=== PATIENT | male | born 1955 | race Caucasian/White ===

== ENCOUNTER 2022-03-01 09:33 | Inpatient (IN) | payer OTHER ==
[2022-02-22 14:52] LABS: BASOPHILS # (AUTO) 0.1 X10'3 (0-0.2); EOSINOPHILS # (AUTO) 0.2 X10'3 (0-0.9); EOSINOPHILS % (AUTO) 2.6 % (0-6); MEAN CORPUSCULAR HEMOGLOBIN 29.4 PG (27.0-31.0); NEUTROPHILS # (AUTO) 4.3 X10'3 (1.8-7.7); PRE OP HEMOGLOBIN 15.7 g/dL (14.0-17.9)
[2022-02-22 14:53] LABS: BASOPHILS % (AUTO) 1.4 % (0-1); MEAN CORPUSCULAR HGB CONC 33.2 g/dL (33.0-36.5); MEAN CORPUSCULAR VOLUME 88.3 FL (78-98); MEAN PLATELET VOLUME 7.2 FL (7.4-10.4); MONOCYTES # (AUTO) 0.9 X10'3 (0-0.9); MONOCYTES % (AUTO) 11.7 % (2-12); NEUTROPHILS % (AUTO) 57.3 % (42-75); PRE OP HEMATOCRIT 47.3 % (42.0-52.0); PRE OP PLATELET COUNT 297 X10'3 (140-440); RED BLOOD COUNT 5.36 X10'6 (4.70-6.10); RED CELL DISTRIBUTION WIDTH 14.2 % (11.5-14.5)
[2022-02-22 15:03] LABS: ALBUMIN/GLOBULIN RATIO 1.1 (1.1-1.5); ALKALINE PHOSPHATASE 76 IU/L (46-116); BLOOD UREA NITROGEN 17 MG/DL (7-18); BUN/CREATININE RATIO 14.8 (5.4-32.0); CALCIUM 9.8 MG/DL (8.5-10.1); CHLORIDE 103 MMOL/L (99-107); CREATININE 1.15 MG/DL (0.60-1.10); PRE OP ALT 40 U/L (30-65); PRE OP ANION GAP 8 (8-16); PRE OP AST 17 U/L (10-37); PRE OP BILIRUB, TOTAL 0.4 MG/DL (0.0-1.0); PRE OP GLUCOSE 179 MG/DL (70-104); PRE OP POTASSIUM 4.1 MMOL/L (3.4-5.1); PRE OP SODIUM 141 MMOL/L (135-145); TOTAL CARBON DIOXIDE 30.3 MMOL/L (24-32); TOTAL PROTEIN 7.6 G/DL (6.4-8.2); eGFR 63 ML/MIN
[2022-03-01] VITALS (20 sets, daily range): BP systolic 109–142; BP diastolic 66–88
[~2022-03-01] VITALS: Ht 179.1 cm; Wt 97.5 kg
[~2022-03-01 09:33] MED LIST: AMLO2.5T2 PO; ASPI81TA52 PO; ATOR-2 PO; CELE-193 PO; DOCUMENT DATE & TIME OF BETA-BLOCKER PO ONE; METF-516 PO; METO-539 PO; ceFAZolin inj. 2,000 MG in dextrose 5%-water 100 ML IV ONE; famotidine 20mg tablet PO ONE; tranexamic acid 650mg tablet PO ONE; vancomycin 1,500 MG in NS 300ml IV soln IV ONE
--- NOTE | 2022-03-01 09:40 | NUR ---
PT COMPLETED 5 DAYS OF HIBICLENS SHOWERS AND NASAL OINTMENT. HE DID NOT WATCH THE EDUCATIONAL VIDEO RECOMMENDED OR READ THE BOOKLET. HE STATED HE HAD HIS SHOULDER DONE BEFORE AND WAS ALREADY INFORMED. RADIAL PULSE STRONG AND MARKED. CSM WITHIN NORMAL LIMITS. Addendum: 03/01/22 at 1254 by Jenni Josue RN Amended: Links added.
[2022-03-01] MEDS: ringers solution, lacted 1,000 ML IV SCH ×2 (10:22→21:01)
--- NOTE | 2022-03-01 10:27 | NUR ---
pt took metoprolol 02/28 at 1900
[2022-03-01] MEDS ORDERED: ringers solution, lacted 1,000 ML IV SCH (11:35)
[2022-03-01] MEDS ORDERED: ondansetron/PF 4mg/2ml inj IV PRN ×2 (11:35→15:30)
[2022-03-01] MEDS ORDERED: morphine 4 MG/ML inj SYRINge IV PRN (11:35)
[2022-03-01] MEDS ORDERED: proCHLORperazine 10 MG/2 ml inj IV PRN (11:35)
[2022-03-01] MEDS ORDERED: morphine 2 MG/ML inj. syringe IV PRN (11:35)
[2022-03-01] MEDS ORDERED: meperidine/PF 25mg/ml syringe IV PRN ×3 (11:35)
[2022-03-01] MEDS ORDERED: ROPIVAcaine 0.5% (5mg/ml) 30ml vial ONE ×2 (12:02→12:51)
[2022-03-01] MEDS ORDERED: ketorolac trometh. 30mg/ml inj. ONE (12:02)
[2022-03-01] MEDS ORDERED: fentaNYL/PF 50MCG/1 ML 2ML syringe ONE (13:07)
[2022-03-01] MEDS ORDERED: MIDAZolam 1 MG/ML 5ML VIAL ONE (13:07)
[2022-03-01] MEDS ORDERED: propofol inj 20 ML IV ONE (13:07)
[2022-03-01] MEDS ORDERED: LIDOcaine 1%/PF 5ML 10 MG/ML VIAL ONE (13:38)
[2022-03-01] MEDS ORDERED: ROPIVAcaine 0.2%/PF PUMP/bolus 545 ML INTERSCALE SCH (14:25)
[2022-03-01] MEDS ORDERED: ROPIVAcaine 0.2% (10 MG/5 ML) BOLUS INJECTION INTERSCALE PRN (14:25)
[2022-03-01] MEDS ORDERED: ondansetron/PF 4mg/2ml inj ONE (15:20)
[2022-03-01] MEDS ORDERED: magnesium hydroxide 30ml (MOM) UD suspension PO PRN (15:30)
[2022-03-01] MEDS ORDERED: bisacodyl 10mg suppository rectal RC PRN (15:30)
[2022-03-01] MEDS ORDERED: oxyCODONE IR 5mg (immed. release) tablet PO PRN ×2 (15:30)
[2022-03-01] MEDS ORDERED: diphenhydrAMINE 25mg capsule PO PRN ×2 (15:30)
[2022-03-01] MEDS ORDERED: HYDROmorphone inj. 0.5 MG/0.5 ML DISP.SYRIN IV PRN (15:30)
[2022-03-01] MEDS ORDERED: HYDROcodone/acetaminophen 10/325mg tab PO PRN ×2 (15:30)
[2022-03-01] MEDS ORDERED: naloxone 0.4 mg/ml inj IV PRN (15:30)
[2022-03-01] MEDS ORDERED: HYDROmorphone 1 mg/ml syringe IV PRN (15:30)
[2022-03-01] MEDS ORDERED: acetaminophen 325mg tablet PO PRN (15:30)
--- NOTE | 2022-03-01 15:40 | NUR ---
Received from OR via HOSPITAL BED, accompanied by Anesthesiologist DR CRAFT and report given by Anesthesiolgist. PT IS GROGGY, NOT RESPONDING TO VERBAL STIMULI. PT PLACED ON BEDSIDE MONITOR, VSS. RECEIVING 8L O2 TO MASK, PT DID START TO DE-SAT DOWN TO 70'S. ORAL AIRWAY PLACED, PT TOLERATED WELL AND IS NOW MAINTAINING O2 SAT IN MID 90'S. PUPILS ARE EQUAL AND REACTIVE. PT IS IN SR WITH RATE IN 70'S. PT HAS 18G PIV TO LEFT FA WITH LR INFUSING ORDERED. PT HAS DRSG TO RIGHT SHOULDER THAT IS CDI, SHOULDER WRAP IS IN PLACE WELL ICE PACK. RT ARM IS IN SLING. PT IS RESTING COMFORTABLY AND WILL CONTINUE TO ASSESS FOR PAIN PT BEGINGS TO WAKE UP MORE FROM ANESTHESIA.
--- NOTE | 2022-03-01 17:21 | NUR ---
REPORT GIVEN TO KIMI BARRIENTOS AND ALL QUESTIONS ANSWERED. PATIENT TRANSFERRED TO ORTHO. LABELED BELONGINGS PRESENT AND DELIVERED TO ROOM. RN PRESENT ALL CRITERIA FOR TRANSFER BACK TO THE FLOOR HAS BEEN ACHIEVED. VSS. PAIN AT A TOLERABLE LEVEL. BED LOW, CALL LIGHT PRESENT AND 2 RAILS DOWN. RN AWARE THAT PATIENT HAS ARRIVED TO ACCEPT CARE OF PATIENT.
--- NOTE | 2022-03-01 17:50 | NUR ---
received patient @ 1745. IV fluids running, Post-op vitals started VS stable. Alert and Oriented x4 at bedside. Will report to NOC shift the need to review orders and initiate floor orders
[2022-03-01] MEDS: ceFAZolin/D5W- 1GM premix 50 ML IV SCH (19:43)
[2022-03-01] MEDS ORDERED: vancomycin/NS 1 GM ADD-VANTAGE 250 ML IV SCH (20:00)
[2022-03-01] MEDS: potassium cl 20mEq in 1/2 NS 1,000 ML IV SCH ×2 (20:56→23:30)
[2022-03-01] MEDS: metFORMIN 500mg tablet PO SCH (20:56)
[2022-03-01] MEDS: acetaminophen 325mg tablet PO SCH (20:57)
[2022-03-01] MEDS ORDERED: metoprolol succinate 25mg (24-HOUR) SR. Tablet PO SCH (21:00)
[2022-03-01] MEDS ORDERED: amLODIPine 2.5mg tablet PO SCH (21:00)
[2022-03-01] MEDS ORDERED: celeCOXIB 100mg capsule PO SCH (21:00)
[2022-03-01] MEDS ORDERED: sennosides 8.6mg tablet PO SCH (21:00)
[2022-03-01] MEDS ORDERED: atorvastatin 20mg tablet PO SCH (21:00)
[2022-03-02] MEDS: ceFAZolin/D5W- 1GM premix 50 ML IV SCH (00:52)
[2022-03-02 02:00] VITALS: BP 120/61
[2022-03-02] MEDS: acetaminophen 325mg tablet PO SCH ×2 (02:00→07:23)
[2022-03-02 06:00] VITALS: BP 104/57
[2022-03-02 06:14] LABS: BASOPHILS # (AUTO) 0.1 X10'3 (0-0.2); BASOPHILS % (AUTO) 0.6 % (0-1); EOSINOPHILS % (AUTO) 0.1 % (0-6); HEMATOCRIT 40.7 % (42.0-52.0); HEMOGLOBIN 13.7 g/dl (14.0-17.9); LYMPHOCYTES % (AUTO) 6.7 % (21-51); MEAN CORPUSCULAR HEMOGLOBIN 29.6 PG (27.0-31.0); MEAN CORPUSCULAR HGB CONC 33.6 g/dL (33.0-36.5); MEAN PLATELET VOLUME 7.3 FL (7.4-10.4); MONOCYTES # (AUTO) 1.4 X10'3 (0-0.9); MONOCYTES % (AUTO) 9.5 % (2-12); NEUTROPHILS # (AUTO) 12.2 X10'3 (1.8-7.7); NEUTROPHILS % (AUTO) 83.1 % (42-75); PLATELET COUNT 269 X10'3 (140-440); RED BLOOD COUNT 4.63 X10'6 (4.70-6.10); RED CELL DISTRIBUTION WIDTH 14.2 % (11.5-14.5); WHITE BLOOD COUNT 14.7 X10'3 (4.5-11.0)
[2022-03-02 06:16] LABS: ANION GAP 7 (8-16); CHLORIDE 105 MMOL/L (99-107); POTASSIUM 4.5 MMOL/L (3.5-5.1); SODIUM 138 MMOL/L (135-145); TOTAL CARBON DIOXIDE 25.7 MMOL/L (24-32)
--- NOTE | 2022-03-02 06:20 | NUR ---
received report from corrine guthrie
--- NOTE | 2022-03-02 06:32 | NUR ---
Patient in room ORTHO 4023. I have received report from Ivy BARRIENTOS and had the opportunity to ask questions and assume patient care.
[2022-03-02] MEDS: metFORMIN 500mg tablet PO SCH (07:24)
[2022-03-02] MEDS ORDERED: aspirin 325mg tablet PO SCH (08:30)
[2022-03-02] MEDS: potassium cl 20mEq in 1/2 NS 1,000 ML IV SCH (08:31)
--- NOTE | 2022-03-02 09:42 | NUR ---
pt d/c with instructions, understanding of instructions and w/all belongings accompanied by walking down to private vehicle to go home and f/u w/pcp
--- NOTE | 2022-03-02 11:22 | NUR ---
Joint Surgery Consult: Pt s/p R shoulder surgery this admit per EMR. Pt discharged prior to RD visit; written high protein diet ed w/ RD contact information mailed to pt home address provided in EMR. Addendum: 03/02/22 at [address] Amended: Links added.
[2022-03-02] MEDS ORDERED: celeCOXIB 100mg capsule PO SCH (20:00)
[2022-03-03] MEDS ORDERED: acetaminophen 325mg tablet PO PRN (15:30)
== END 2022-03-02 09:40 | disposition home or self-care (01) | DRG 483 ==
LOC: PAS 09:33 → EDSTATUS 11:00 → PAS IN 15:32 → ORTHO 4S 17:25
PROVIDERS: ADMIT Orthopaedic Surgery; ATTEND Orthopaedic Surgery
PROC: 0RPJ0J6 Removal of Synthetic Substitute from Right Shoulder Joint, Humeral Surface, Open Approach (ICD-10-PCS; 2022-03-01)
PROC: 0LS30ZZ Reposition Right Upper Arm Tendon, Open Approach (ICD-10-PCS; 2022-03-01)
PROC: 3E0T3BZ Introduction of Anesthetic Agent into Peripheral Nerves and Plexi, Percutaneous Approach (ICD-10-PCS; 2022-03-01)
PROC: 3E0T33Z Introduction of Anti-inflammatory into Peripheral Nerves and Plexi, Percutaneous Approach (ICD-10-PCS; 2022-03-01)
PROC: 0RRJ0JZ Replacement of Right Shoulder Joint with Synthetic Substitute, Open Approach (ICD-10-PCS; principal; 2022-03-01 13:02)
DX: M19.011 Primary osteoarthritis, right shoulder (principal); G89.29 Other chronic pain
CPT/HCPCS: 36415; 80051; 80053; 82948; 85025; 87081; 87811; 97110; 97116; 97161; A4215; A4565; A4615; A4618; A7000; C1713; C1776; G0378; J0690; J1885; J2250; J2405; J2704; J2795; J3010; J3370; J3480; J3490; J7040; J7060; J7120

== ENCOUNTER → 2022-08-15 | Day surgery (SDC) | payer OTHER ==
[2022-08-10 10:47] LABS: BASOPHILS # (AUTO) 0.1 X10'3 (0-0.2); BASOPHILS % (AUTO) 1.3 % (0-1); EOSINOPHILS # (AUTO) 0.1 X10'3 (0-0.9); EOSINOPHILS % (AUTO) 1.3 % (0-6); LYMPHOCYTES # (AUTO) 1.7 X10'3 (1.1-4.8); LYMPHOCYTES % (AUTO) 20.6 % (21-51); MEAN CORPUSCULAR HEMOGLOBIN 29.4 PG (27.0-31.0); MEAN PLATELET VOLUME 7.6 FL (7.4-10.4); MONOCYTES # (AUTO) 0.7 X10'3 (0-0.9); MONOCYTES % (AUTO) 8.6 % (2-12); NEUTROPHILS # (AUTO) 5.6 X10'3 (1.8-7.7); NEUTROPHILS % (AUTO) 68.2 % (42-75); PRE OP HEMATOCRIT 47.8 % (42.0-52.0); PRE OP HEMOGLOBIN 15.8 g/dL (14.0-17.9); PRE OP PLATELET COUNT 306 X10'3 (140-440); RED BLOOD COUNT 5.37 X10'6 (4.70-6.10); RED CELL DISTRIBUTION WIDTH 14.1 % (11.5-14.5)
[2022-08-10 10:57] LABS: CHLORIDE 102 MMOL/L (99-107); PRE OP POTASSIUM 4.1 MMOL/L (3.4-5.1); PRE OP SODIUM 139 MMOL/L (135-145)
[2022-08-10 10:58] LABS: ALBUMIN 4.1 G/DL (3.4-5.0); ALBUMIN/GLOBULIN RATIO 1.1 (1.1-1.5); ALKALINE PHOSPHATASE 71 IU/L (46-116); BLOOD UREA NITROGEN 16 MG/DL (7-18); BUN/CREATININE RATIO 12.5 (5.4-32.0); CALCIUM 9.4 MG/DL (8.5-10.1); CREATININE 1.28 MG/DL (0.60-1.10); PRE OP ALT 34 U/L (30-65); PRE OP ANION GAP 10 (8-16); PRE OP AST 23 U/L (10-37); PRE OP BILIRUB, TOTAL 0.7 MG/DL (0.0-1.0); TOTAL PROTEIN 7.7 G/DL (6.4-8.2); eGFR 56 ML/MIN
[2022-08-10 10:59] LABS: PRE OP GLUCOSE 236 MG/DL (70-104)
[2022-08-15] VITALS (12 sets, daily range): BP systolic 126–161; BP diastolic 79–102
[~2022-08-15] VITALS: Ht 179.1 cm; Wt 98.9 kg
[~2022-08-15] MED LIST changes: +ASCO-157 PO; +BUPIVAcaine/PF 2.5 mg/ml (0.25%) 30ml vial ONE; +CHOL500049 PO; +HYDROcodone/acetaminophen 10/325mg tab PO PRN; +LIDOcaine 2% (20mg/ml) 5ml vial ONE; +MULT-1085 PO; +ROPIVAcaine 0.5% (5mg/ml) 30ml vial ONE; -ceFAZolin inj. 2,000 MG in dextrose 5%-water 100 ML IV ONE; +cefazolin 2gm/D5W 100mL 100 ML IV ONE; +dexamethasone sod phosphate 4mg/ml inj. ONE; +fentaNYL/PF 50MCG/1 ML 2ML syringe IV PRN; +fentaNYL/PF 50MCG/1 ML 2ML syringe ONE; +hydrALAZINE 20mg/ml inj. IV PRN; +labetalol 20mg/4ml (5mg/ml) syringe IV PRN; +midazolam 1 mg/ML 2ml injection ONE; +morphine 2 MG/ML inj. syringe IV PRN; +morphine 4 MG/ML inj SYRINge IV PRN; +ondansetron/PF 4mg/2ml inj IV PRN; +ondansetron/PF 4mg/2ml inj ONE; +propofol inj 20 ML IV ONE; +ringers solution, lacted 1,000 ML IV SCH; -tranexamic acid 650mg tablet PO ONE; -vancomycin 1,500 MG in NS 300ml IV soln IV ONE
--- NOTE | 2022-08-15 09:38 | NUR ---
Received from OR via , accompanied by Anesthesiologist ANTONIO AND OR NURSE and report given by Anesthesiolgist. PT IS DROWSY AND NEEDS AN ORAL AIRWAY A PRECAUTIONARY STEP UNTIL HE AWAKENS MORE. PT ABLE TO OPEN EYES MOMENTARILY. 20G TO RT HAND. LEFT ELBOW WRAPPED IN GAUZE, SPLINT AND ACEWRAP IN A SLING; CDI. DENIES PAIN OR DISCOMFORT. VSS Addendum: 08/15/22 at 1023 by Lucero Stock RN Amended: Links added.
--- NOTE | 2022-08-15 11:28 | NUR ---
I HAVE REVIEWED D/C INSTRUCTIONS WITH PATIENT AND THEY HAVE VERBALIZED UNDERSTANDING OF INSTRUCTIONS. PATIENT D/C HOME WITH ALL BELONGINGS AND FAMILY GAVE TRANSPORT Addendum: 08/15/22 at 1224 by Lucero Stock RN Amended: Links added.
== END | disposition home or self-care (01) ==
LOC: PAS 05:50
PROVIDERS: ATTEND Orthopaedic Surgery
DX: S46.312A Strain of muscle, fascia and tendon of triceps, left arm, initial encounter (principal); M19.011 Primary osteoarthritis, right shoulder; I10 Essential (primary) hypertension; E11.9 Type 2 diabetes mellitus without complications; G89.18 Other acute postprocedural pain; Z79.899 Other long term (current) drug therapy; Z79.84 Long term (current) use of oral hypoglycemic drugs; Z96.611 Presence of right artificial shoulder joint; Z87.891 Personal history of nicotine dependence; Z98.890 Other specified postprocedural states; Z72.89 Other problems related to lifestyle; X58.XXXA Exposure to other specified factors, initial encounter; Y93.89 Activity, other specified; Y92.89 Other specified places as the place of occurrence of the external cause; Y99.8 Other external cause status
CPT/HCPCS: 24342; 36415; 64417; 80053; 82948; 83036; 85025; J1100; J2250; J2405; J2704; J2795; J3010; J3490; J7030; J7120; Z7506; Z7508; Z7512; A4615; A4618; A6449; A7000

== ENCOUNTER 2024-02-29 07:42 | Outpatient (CLI) | payer OTHER ==
[~2024-02-29 07:42] MED LIST changes: -BUPIVAcaine/PF 2.5 mg/ml (0.25%) 30ml vial ONE; -DOCUMENT DATE & TIME OF BETA-BLOCKER PO ONE; -HYDROcodone/acetaminophen 10/325mg tab PO PRN; -LIDOcaine 2% (20mg/ml) 5ml vial ONE; -ROPIVAcaine 0.5% (5mg/ml) 30ml vial ONE; -cefazolin 2gm/D5W 100mL 100 ML IV ONE; -dexamethasone sod phosphate 4mg/ml inj. ONE; -famotidine 20mg tablet PO ONE; -fentaNYL/PF 50MCG/1 ML 2ML syringe IV PRN; -fentaNYL/PF 50MCG/1 ML 2ML syringe ONE; -hydrALAZINE 20mg/ml inj. IV PRN; -labetalol 20mg/4ml (5mg/ml) syringe IV PRN; -midazolam 1 mg/ML 2ml injection ONE; -morphine 2 MG/ML inj. syringe IV PRN; -morphine 4 MG/ML inj SYRINge IV PRN; -ondansetron/PF 4mg/2ml inj IV PRN; -ondansetron/PF 4mg/2ml inj ONE; -propofol inj 20 ML IV ONE; -ringers solution, lacted 1,000 ML IV SCH
[2024-02-29 08:18] LABS: BILIRUBIN,URINE NEGATIVE (Neg); CLARITY,URINE CLEAR (Clear); COLOR,URINE YELLOW (Yellow); GLUCOSE, URINE >=1000 mg/dl (Neg); KETONES,URINE NEGATIVE (Neg); LEUKOCYTE ESTERASE ,URINE NEGATIVE (Neg); NITRITES, URINE NEGATIVE (Neg); OCCULT BLOOD,URINE NEGATIVE (Neg); PROTEIN,URINE NEGATIVE (Neg); UROBILINOGEN,URINE 0.2 E.U/dL (0.2-1.0)
[2024-02-29 08:19] LABS: BASOPHILS # (AUTO) 0.1 X10'3 (0-0.2); BASOPHILS % (AUTO) 1.2 % (0-1); EOSINOPHILS # (AUTO) 0.3 X10'3 (0-0.9); EOSINOPHILS % (AUTO) 3.6 % (0-6); HEMOGLOBIN 15.5 g/dl (14.0-17.9); LYMPHOCYTES # (AUTO) 1.5 X10'3 (1.1-4.8); LYMPHOCYTES % (AUTO) 20.9 % (21-51); MEAN CORPUSCULAR HEMOGLOBIN 29.2 PG (27.0-31.0); MEAN CORPUSCULAR HGB CONC 32.9 g/dL (33.0-36.5); MEAN CORPUSCULAR VOLUME 88.8 FL (78-98); MEAN PLATELET VOLUME 7.1 FL (7.4-10.4); MONOCYTES # (AUTO) 0.6 X10'3 (0-0.9); MONOCYTES % (AUTO) 8.6 % (2-12); NEUTROPHILS # (AUTO) 4.6 X10'3 (1.8-7.7); NEUTROPHILS % (AUTO) 65.7 % (42-75); PLATELET COUNT 273 X10'3 (140-440); RED CELL DISTRIBUTION WIDTH 14.9 % (11.5-14.5)
[2024-02-29 08:24] LABS: UA COLLECTION TYPE CLN CATCH MIDSTREAM
[2024-02-29 08:25] LABS: BACTERIA,URINE NONE SEEN /HPF (Neg); RBC,URINE 0-2 /HPF (0-2); SQUAMOUS EPITHELIAL CELL,UR NONE SEEN /LPF (FEW); WBC,URINE 0-4 /HPF (0-4)
[2024-02-29 08:44] LABS: ALANINE AMINOTRANSFERASE 26 U/L (12-78); ALBUMIN 3.9 G/DL (3.4-5.0); ALKALINE PHOSPHATASE 58 IU/L (46-116); ANION GAP 5 (8-16); ASPARTATE AMINO TRANSFERASE 15 U/L (10-37); BILIRUBIN,TOTAL 0.7 MG/DL (0.1-1.0); BLOOD UREA NITROGEN 17 MG/DL (7-18); CHLORIDE 105 MMOL/L (99-107); CHOLESTEROL 112 MG/DL (0-200); CREATININE 1.21 MG/DL (0.60-1.10); GLUCOSE 144 MG/DL (70-104); HDL CHOLESTEROL 55 MG/DL (35-60); LDL CHOLESTEROL 44 MG/DL (50-100); POTASSIUM 4.1 MMOL/L (3.5-5.1); SODIUM 141 MMOL/L (135-145); THYROID STIMULATING HORMONE 1.86 ulU/ml (0.34-4.50); TRIGLYCERIDES 88 MG/DL (20-135); eGFR 59 ML/MIN
[2024-02-29 08:56] LABS: ALBUMIN/GLOBULIN RATIO 1.1 (1.1-1.5); TOTAL PROTEIN 7.3 G/DL (6.4-8.2)
[2024-03-01 11:13] LABS: MICROALBUMIN, RANDOM URINE 32.5 ug/mL (Not Estab.); THYROXINE (T4) 8.4 ug/dL (4.5-12.0)
[2024-03-02 06:10] LABS: FOLATE SERUM(FOLIC) >20.0 ng/mL (>3.0)
== END 2024-02-29 23:59 | disposition home or self-care (01) ==
LOC: RAD 07:42
PROVIDERS: ATTEND Nurse Practitioner Family
DX: R53.83 Other fatigue (principal); E11.9 Type 2 diabetes mellitus without complications; Z00.01 Encounter for general adult medical examination with abnormal findings
CPT/HCPCS: 36415; 80053; 80061; 81001; 82043; 82607; 82746; 84436; 84443; 85025

== ENCOUNTER 2024-10-15 07:44 | Outpatient (CLI) | payer OTHER ==
[2024-10-15 08:14] LABS: BASOPHILS # (AUTO) 0.1 X10'3 (0-0.2); EOSINOPHILS # (AUTO) 0.3 X10'3 (0-0.9); LYMPHOCYTES # (AUTO) 1.7 X10'3 (1.1-4.8); NEUTROPHILS # (AUTO) 5.9 X10'3 (1.8-7.7); NEUTROPHILS % (AUTO) 68.9 % (42-75); WHITE BLOOD COUNT 8.6 X10'3 (4.5-11.0)
[2024-10-15 08:16] LABS: BASOPHILS % (AUTO) 0.7 % (0-1); HEMATOCRIT 51.1 % (42.0-52.0); HEMOGLOBIN 16.8 g/dl (14.0-17.9); LYMPHOCYTES % (AUTO) 19.5 % (21-51); MEAN CORPUSCULAR HGB CONC 32.8 g/dL (33.0-36.5); MEAN CORPUSCULAR VOLUME 88.3 FL (78-98); MONOCYTES # (AUTO) 0.7 X10'3 (0-0.9); MONOCYTES % (AUTO) 7.9 % (2-12); PLATELET COUNT 295 X10'3 (140-440); RED BLOOD COUNT 5.79 X10'6 (4.70-6.10); RED CELL DISTRIBUTION WIDTH 14.2 % (11.5-14.5)
[2024-10-15 08:29] LABS: BILIRUBIN,URINE NEGATIVE (Neg); CLARITY,URINE CLEAR (Clear); COLOR,URINE YELLOW (Yellow); GLUCOSE, URINE >=1000 mg/dl (Neg); KETONES,URINE NEGATIVE (Neg); LEUKOCYTE ESTERASE ,URINE NEGATIVE (Neg); NITRITES, URINE NEGATIVE (Neg); OCCULT BLOOD,URINE NEGATIVE (Neg); PROTEIN,URINE NEGATIVE (Neg); UROBILINOGEN,URINE 0.2 E.U/dL (0.2-1.0)
[2024-10-15 08:30] LABS: UA COLLECTION TYPE CLN CATCH MIDSTREAM
[2024-10-15 08:38] LABS: BACTERIA,URINE NONE SEEN /HPF (Neg); RBC,URINE NONE SEEN /HPF (0-2)
[2024-10-15 08:40] LABS: SQUAMOUS EPITHELIAL CELL,UR FEW /LPF (FEW); WBC,URINE 0-4 /HPF (0-4)
[2024-10-15 08:49] LABS: ALANINE AMINOTRANSFERASE 27 U/L (12-78); ALBUMIN 4.1 G/DL (3.4-5.0); ALBUMIN/GLOBULIN RATIO 1.2 (1.1-1.5); ALKALINE PHOSPHATASE 70 IU/L (46-116); ANION GAP 5 (8-16); ASPARTATE AMINO TRANSFERASE 19 U/L (10-37); BILIRUBIN,TOTAL 0.8 MG/DL (0.1-1.0); BLOOD UREA NITROGEN 21 MG/DL (7-18); BUN/CREATININE RATIO 16.2 (10.0-20.0); CALCIUM 9.6 MG/DL (8.5-10.1); CHLORIDE 105 MMOL/L (99-107); CHOL/HDL RATIO 2.5 (0.00-4.99); CHOLESTEROL 139 MG/DL (0-200); FREE T4 (FREE THYROXINE) 0.81 NG/DL (0.73-1.40); GLUCOSE 130 MG/DL (70-104); HDL CHOLESTEROL 55 MG/DL (35-60); LDL CHOLESTEROL 63 MG/DL (50-100); POTASSIUM 4.6 MMOL/L (3.5-5.1); SODIUM 141 MMOL/L (135-145); THYROID STIMULATING HORMONE 2.22 ulU/ml (0.34-4.50); TOTAL CARBON DIOXIDE 30.7 MMOL/L (24-32); TOTAL PROTEIN 7.6 G/DL (6.4-8.2); TRIGLYCERIDES 139 MG/DL (20-135); eGFR 55 ML/MIN
[2024-10-15 08:56] LABS: HEMOGLOBIN A1C 6.2 % (4.5-6.2)
== END 2024-10-15 23:59 | disposition home or self-care (01) ==
LOC: LAB 07:44
PROVIDERS: ATTEND Nurse Practitioner Family
DX: E11.9 Type 2 diabetes mellitus without complications (principal); G63 Polyneuropathy in diseases classified elsewhere; R53.83 Other fatigue
CPT/HCPCS: 36415; 80053; 80061; 81001; 82043; 83036; 84439; 84443; 85025